=== PATIENT | male | born 2000 | race Caucasian/White ===

== ENCOUNTER 2021-08-01 09:54 | Observation (INO) ==
--- NOTE | 2021-08-01 11:15 | Emergency Department Note ---
History of Present Illness General Chief complaint: Arm Pain Stated complaint: ARM PAIN Time Seen by Provider: 08/01/21 10:58 Source: patient Mode of arrival: ambulatory Limitations: no limitations History of Present Illness Maximum Pain Intensity: 8 This patient is a 20-year-old male who presents to the emergency department for evaluation of right arm pain/swelling. Patient states that he cut his elbow a few days ago. He states that he fell and hit the elbow again last night. He woke up this morning and states that the arm was very red and swollen. He states there was no swelling prior to this morning. He rates his discomfort an 8/10. He is able to move the elbow but states it is just very painful to do so. He has not noticed any fevers at home, but was told here that he has a temperature of 99 F. Home Medications Medication Instructions Recorded Confirmed Type No Known Home Medications 08/01/21 08/01/21 History Allergies Allergy/AdvReac Type Severity Reaction Status Date / Time No Known Allergies Allergy Unverified 08/01/21 18:33 Past Med/Surg History Medical History No significant past medical history Surgical History No significant past surgical history Social History Smoking Status: Unknown if ever smoked Second Hand Exposure: Yes; Do You Dip or Chew Tobacco: No; Tobacco Cessation Education Requested by Patient: No Hx Alcohol Use: Yes Alcohol type: beer Hx Substance Use: No Preferred Language: Luxembourger Communication Ability: Effective Animation Producer Required: No Beliefs That Will Affect Care: None Current Living Situation: Other Current Living Situation Comment: lives in house off campus Other Information That Helps Us Care for You: No Feels Safe at Home: Yes Safety Concerns: Feels Safe At This Time Assistive Devices: None Review of Systems A total of 10 systems reviewed and were otherwise negative Physical Exam Vital Signs Vital Signs - 24 hr 08/01/21 10:12 08/01/21 11:44 08/01/21 13:05 Temperature 37.7 C H 38.1 C H Temperature Source Oral Oral Pulse Rate 112 H Pulse Rate [Right Finger] 112 H 76 Pulse Rhythm [Right Finger] Regular Pulse Strength [Right Finger] Normal Respiratory Rate 20 16 20 Respiratory Effort / Characteristics Non-Labored Spontaneous Respiratory Depth Normal Respiratory Pattern Regular Blood Pressure 118/63 Blood Pressure [Left Arm] 125/72 125/72 Blood Pressure Mean 81 Blood Pressure Mean [Left Arm] 89 89 Blood Pressure Position [Left Arm] Sitting Pulse Oximetry 99 98 99 Oxygen Delivery Method Room Air Room Air Room Air Sepsis Recent Fever Within 48 Hours No Sepsis New/Unexplained Change in Mental Status N/A Sepsis Action Taken by Nursing No Action Required VITALS: Vitals are noted on the nurse's note and reviewed by myself. GENERAL: This is a 20-year-old male, in no acute distress, well-developed well- nourished. SKIN: There is a large area of erythema, warmth and induration to the right elbow. There is a scabbed puncture wound over the olecranon. There is some lymphangitic streaking in the medial arm. EYES: Pupils equal round and reactive to light and accommodation. MOUTH: Mucous membranes moist. NECK: Supple without nuchal rigidity. No lymphadenopathy. HEART: Regular rate and rhythm without murmurs gallops or rubs. LUNGS: Clear to auscultation bilaterally without wheezes, rales or rhonchi. MUSCULOSKELETAL: Erythema, warmth, induration and tenderness to a large area surrounding the right elbow. Decreased range of motion of the elbow. NEURO: Patient was alert and oriented to person place and time. Distal sen sation intact. Course Consultations Consultation #1: Dr. Beck - [facility] Hospitalist Consultation #2: Dr. Servin - Orthopedics Administered Medications Acetaminophen (Acetaminophen 325 Mg Tab) 650 mg PO Q4H PRN PRN Reason: pain/fever Stop: 08/31/21 14:37 Last Admin: 08/01/21 16:29 Dose: 650 mg Documented by: [id number] Sodium Chloride (Nss 1000ml) 1,000 mls @ 150 mls/hr IV .Q6H40M HANY Stop: 08/31/21 16:29 Last Admin: 08/01/21 19:00 Dose: 150 mls/hr Documented by: [id number] Infusion: 08/01/21 19:00 Dose: 150 mls/hr Documented by: [id number] Admin: 08/01/21 16:29 Dose: 150 mls/hr Documented by: [id number] Discontinued Medications Sodium Chloride (Nss 1000ml) 1,000 mls @ 999 mls/hr IV .Q1H1M ONE Stop: 08/01/21 12:19 Last Infusion: 08/01/21 14:33 Dose: 0 mls/hr Documented by: [id number] Admin: 08/01/21 12:41 Dose: 999 mls/hr Documented by: [id number] Ceftriaxone Sodium (Rocephin) 2,000 mg in 70 mls @ 140 mls/hr IV NOW STA Stop: 08/01/21 12:55 Last Infusion: 08/01/21 13:11 Dose: 0 mls/hr Documented by: [id number] Admin: 08/01/21 12:41 Dose: 140 mls/hr Documented by: [id number] Sodium Chloride (Nss 1000ml) 1,000 mls @ 999 mls/hr IV .Q1H1M ONE Stop: 08/01/21 14:20 Last Infusion: 08/01/21 13:48 Dose: 0 mls/hr Documented by: [id number] Admin: 08/01/21 13:29 Dose: 999 mls/hr Documented by: [id number] Sodium Chloride (Nss 1000ml) 500 mls @ 999 mls/hr IV .Q31M ONE Stop: 08/01/21 13:50 Last Infusion: 08/01/21 15:08 Dose: 0 mls/hr Documented by: [id number] Admin: 08/01/21 14:33 Dose: 999 mls/hr Documented by: [id number] Vancomycin HCl 1,500 mg/ (Sodium Chloride) 530 mls @ 200 mls/hr IV NOW ONE Stop: 08/01/21 16:53 Last Infusion: 08/01/21 18:19 Dose: 200 mls/hr Documented by: [id number] Admin: 08/01/21 15:14 Dose: 200 mls/hr Documented by: [id number] Ketorolac Tromethamine (Ketorolac Tromethamine 15 Mg/Ml Vial) 15 mg IV NOW STA Stop: 08/01/21 11:20 Last Admin: 08/01/21 12:41 Dose: 15 mg Documented by: [id number] Miscellaneous (Patient's Height And/Or Weight Needed) 1 ea N/A Q2H HANY Stop: 08/02/21 02:31 Last Admin: 08/01/21 16:30 Dose: 1 ea Documented by: [id number] Medical Decision Making Differential Diagnosis Differential diagnosis includes cellulitis, abscess, septic joint, sepsis, among others. Home Medications Current Medication List: was personally reviewed by me Laboratory Data Attestation: I reviewed the patient's lab results. Result diagrams: 08/01/21 11:57 08/01/21 11:57 Lab Results 08/01/21 08/01/21 08/01/21 Range/Units 11:57 11:57 12:30 WBC 17.61 H (4.8-10.8) K/uL RBC 4.56 L (4.7-6.1) M/uL Hgb 14.5 (14.0-18.0) g/dL Hct 41.3 L (42-52) % MCV 90.6 (80-100) fL MCH 31.8 (25-34) pg MCHC 35.1 (32-36) g/dL RDW Std Deviation 42.3 (36.4-46.3) fL RDW Coeff of Tani 12.8 (11.5-14.5) % Plt Count 299 (130-400) K/uL MPV 10.0 (7.4-10.4) fL Immature Gran % (Auto) 0.3 % Neut % (Auto) 84.1 % Lymph % (Auto) 9.5 % [place] % (Auto) 6.0 % Eos % (Auto) 0.0 % Baso % (Auto) 0.1 % Neut # (Auto) 14.80 H (1.4-6.5) K/uL Lymph # (Auto) 1.68 (1.2-3.4) K/uL [place] # (Auto) 1.06 H (0.11-0.59) K/uL Eos # (Auto) 0.00 (0-0.5) K/uL Baso # (Auto) 0.02 (0-0.2) K/uL Immature Gran # (Auto) 0.05 H (0.00-0.02) K/uL Sodium 136 (136-145) mmol/L Potassium 4.0 (3.5-5.1) mmol/L Chloride 100 (98-107) mmol/L Carbon Dioxide 26 (21-32) mmol/L Anion Gap 11.0 (3-11) BUN 10 (7-18) mg/dl Creatinine 1.29 (0.6-1.4) mg/dl Est Cr Clr Drug Dosing 88.4 ml/min Est GFR ( Amer) 91.9 ml/min Est GFR (Non-Af Amer) 79.3 ml/min BUN/Creatinine Ratio 7.6 L (10-20) Glucose 95 (70-99) mg/dl Lactate 2.9 H* (0.4-2.0) mmol/L Calcium 9.2 (8.5-10.1) mg/dl Total Bilirubin 1.0 (0.2-1) mg/dl AST 45 H (15-37) U/L ALT 32 (12-78) U/L Alkaline Phosphatase 101 (45-117) U/L Total Protein 7.8 (6.4-8.2) gm/dl Albumin 4.1 (3.4-5.0) gm/dl Globulin 3.7 (2.5-4.0) gm/dl Albumin/Globulin Ratio 1.1 (0.9-2) COVID-19 Eval Order SARS-CoV-2 (PCR) (Negative) 08/01/21 08/01/21 Range/Units 13:28 13:28 WBC (4.8-10.8) K/uL RBC (4.7-6.1) M/uL Hgb (14.0-18.0) g/dL Hct (42-52) % MCV (80-100) fL MCH (25-34) pg MCHC (32-36) g/dL RDW Std Deviation (36.4-46.3) fL RDW Coeff of Tani (11.5-14.5) % Plt Count (130-400) K/uL MPV (7.4-10.4) fL Immature Gran % (Auto) % Neut % (Auto) % Lymph % (Auto) % [place] % (Auto) % Eos % (Auto) % Baso % (Auto) % Neut # (Auto) (1.4-6.5) K/uL Lymph # (Auto) (1.2-3.4) K/uL [place] # (Auto) (0.11-0.59) K/uL Eos # (Auto) (0-0.5) K/uL Baso # (Auto) (0-0.2) K/uL Immature Gran # (Auto) (0.00-0.02) K/uL Sodium (136-145) mmol/L Potassium (3.5-5.1) mmol/L Chloride (98-107) mmol/L Carbon Dioxide (21-32) mmol/L Anion Gap (3-11) BUN (7-18) mg/dl Creatinine (0.6-1.4) mg/dl Est Cr Clr Drug Dosing ml/min Est GFR ( Amer) ml/min Est GFR (Non-Af Amer) ml/min BUN/Creatinine Ratio (10-20) Glucose (70-99) mg/dl Lactate (0.4-2.0) mmol/L Calcium (8.5-10.1) mg/dl Total Bilirubin (0.2-1) mg/dl AST (15-37) U/L ALT (12-78) U/L Alkaline Phosphatase (45-117) U/L Total Protein (6.4-8.2) gm/dl Albumin (3.4-5.0) gm/dl Globulin (2.5-4.0) gm/dl Albumin/Globulin Ratio (0.9-2) COVID-19 Eval Order Covid19 at [facility] SARS-CoV-2 (PCR) NEGATIVE (Negative) Imaging Data Attestation: I personally reviewed and interpreted this imaging study as follows: Radiologist's Impression: Elbow X-Ray 08/01/21 10:28 RIGHT ELBOW 3 VIEWS CLINICAL HISTORY: Fall with right elbow injury. FINDINGS: 3 views of the right elbow are obtained. No prior studies are available for comparison at the time of dictation. The skeletal structures are well mineralized. No fracture is seen. The joint spaces are preserved. There is no joint effusion. Dorsal soft tissue edema is seen involving the elbow and upper forearm. IMPRESSION: Soft tissue swelling with no fracture identified. Electronically signed by: Vincent Delaney M.D. 08/01/2021 11:56 AM MDM Narrative Continuous laboratory monitor: Order was placed for continuous laboratory monitor. Patient was placed on the laboratory monitor. Patient was noted to be in sinus tachycardia at an initial rate of 112 bpm. The patient is a 20-year-old male who presents today complaining of right elbow pain/swelling. Labs revealed a leukocytosis of 17,000, elevated lactate at 2.9. Patient was febrile and tachycardic on arrival. He did receive a fluid bolus to total 30 mL/kg. He was given Rocephin and Vancomycin. The overlying scab was unroofed and a small amount of purulent drainage expressed and cultured. I do expect patient will likely require further I&D/debridement by orthopedics, who was consulted and agreed to evaluate the patient. Case was discussed with the [facility] hospitalist, who agreed to evaluate the patient for further care. I did offer to speak with the patient's parents, and he declined. Impression & Plan Sepsis, Cellulitis of left forearm Discharge Plan Visit Data Chief Complaint: Arm Pain Stated Complaint: ARM PAIN ED Provider: Reinaldo Echeverria ED Midlevel Provider: Nika Quiles Discharge Problem: Sepsis, Cellulitis of left forearm Patient Disposition: Admitted As Inpatient Discharge Instructions Interventions: ED Discharge Assessment Last Done: 08/01/21 15:22 Discharge Problem: Sepsis Qualifiers: Sepsis type: sepsis due to unspecified organism Sepsis acute organ dysfunction status: without acute organ dysfunction Qualified Code(s): A41.9 - Sepsis, unspecified organism
[2021-08-01] MEDS ORDERED: KETOROLAC TROMETHAMINE 15 MG/ML VIAL IV STA (11:19)
[2021-08-01] MEDS ORDERED: SODIUM CHLORIDE 0.9% 1000ML 1,000 ML IV ONE ×2 (11:19→13:20)
--- NOTE | 2021-08-01 11:58 | XRay Report ---
RIGHT ELBOW 3 VIEWS CLINICAL HISTORY: Fall with right elbow injury. FINDINGS: 3 views of the right elbow are obtained. No prior studies are available for comparison at t he time of dictation. The skeletal structures are well mineralized. No fracture is seen. The joint sp aces are preserved. There is no joint effusion. Dorsal soft tissue edema is seen involving the elbow and upper forearm. IMPRESSION: Soft tissue swelling with no fracture identified. Electronically signed by: Vincent Delaney M.D. 08/01/2021 11:56 AM
[2021-08-01 12:25] LABS: Hematocrit (blood only) 41.3 % (42-52); Hemoglobin 14.5 g/dL (14.0-18.0); Mean Corpuscular Hemoglobin 31.8 pg (25-34); Mean Corpuscular Hgb Conc 35.1 g/dL (32-36); Mean Corpuscular Volume 90.6 fL (80-100); Platelet Count 299 K/uL (130-400); RDW Coefficient of Variation 12.8 % (11.5-14.5); RDW Standard Deviation 42.3 fL (36.4-46.3); Red Blood Count 4.56 M/uL (4.7-6.1); White Blood Count 17.61 K/uL (4.8-10.8)
[2021-08-01] MEDS ORDERED: cefTRIAXone SODIUM 2,000 MG/70 ML BAG IV STA (12:26)
[2021-08-01 12:46] LABS: Albumin Level 4.1 gm/dl (3.4-5.0); BUN Creatinine Ratio 7.6 (10-20); Calcium 9.2 mg/dl (8.5-10.1); Creatinine Clr Calc Pharmacy 88.4 ml/min; Est GFR (African American) 91.9 ml/min; Est GFR (Non-African American) 79.3 ml/min
[2021-08-01 12:49] LABS: Albumin Globulin Ratio 1.1 (0.9-2); Globulin 3.7 gm/dl (2.5-4.0); Total Protein 7.8 gm/dl (6.4-8.2)
[2021-08-01 13:20] LABS: Basophils # (auto) 0.02 K/uL (0-0.2); Basophils % (auto) 0.1 %; Immature Granulocytes # (auto) 0.05 K/uL (0.00-0.02); Immature Granulocytes % (auto) 0.3 %; Lymphocytes # (auto) 1.68 K/uL (1.2-3.4); Lymphocytes % (auto) 9.5 %; Monocytes # (auto) 1.06 K/uL (0.11-0.59); Neutrophils % (auto) 84.1 %
[2021-08-01] MEDS ORDERED: SODIUM CHLORIDE 0.9% 1000ML 500 ML IV ONE (13:20)
--- NOTE | 2021-08-01 13:46 | History & Physical Report ---
Date of Service August 01, 2021 Assessment & Plan (1) Cellulitis: Plan: 20 o male with h/o of fall on concrete arrives to ER over 48 hours after fall. This lesion appears to have complicated and is now showing signs of cellulitis with purulent drainage. May need to be debrided. Due to concern for MRSA will place on vanco and will continue this medication for now. This was discussed with ER provider and this was added. Also obtained culture of purulent drainage (from 5ml of drainage). will consult ortho. Patient received ceftriaxone in the ER. obtained blood culture. Saw patient again at 1800, patient feels improved. He states he is less foggy, and has more energy. Inquires if he can be discharged, however, explained that patient is sick and needs to stay in the hospital. (2) Severe sepsis: Plan: lactic acidosis has improved. will continue vancomycin and monitor improvement. if no significant improvement, may consider acting anaerobic coverage. DVT: lovenox Full Code History of Present Illness Chief Complaint: Red right elbow. Primary Care Provider: NO PCP This a pleasant 20 yo male who came into the ER with Right elbow erythema, with pain that patient noticed when he awoke this monring. Patient reports he was his usual state of health this past Sunday when he fell and scraped his right elbow on the concrete floor. He noticed the cut was deep, but decided not to go to the ER. The area scabbed over on Sunday and Sunday he noticed he had localized dull pain. But patient did not recall any redness at that time.. He denied any subjective complaints of fever, chills, nausea, vomiting. Patient this morning noticed a signifcant amount of swelling and redness and moderate to severe pain on palpation. Erythema encompasses the right albow and goes up to the right forearm. Once patient came to the ER, he was found to be tachycardic, elevated WBC, and elevated Lactic acid. Patient was given fluids, and ceftriaxone and admission was called. During interview, patient's arm began to drain purulent yellow discharge. Allergies Allergy/AdvReac Type Severity Reaction Status Date / Time No Known Allergies Allergy Unverified 08/01/21 18:33 Home Medications Medication Instructions Recorded Confirmed Type No Known Home Medications 08/01/21 08/01/21 History Past Med/Surg History Medical History No significant past medical history Surgical History No significant past surgical history Social History Smoking Status: Unknown if ever smoked Second Hand Exposure: Yes; Do You Dip or Chew Tobacco: No; Tobacco Cessation Education Requested by Patient: No Hx Alcohol Use: Yes Alcohol type: beer Hx Substance Use: No Preferred Language: Ukrainian Communication Ability: Effective Retail Field Merchandiser Required: No Beliefs That Will Affect Care: None Current Living Situation: Other Current Living Situation Comment: lives in house off campus Other Information That Helps Us Care for You: No Feels Safe at Home: Yes Safety Concerns: Feels Safe At This Time Assistive Devices: None Review of Systems Constitutional: + fever and + chills; no sweats, no body aches and no fatigue Eyes: no diplopia and no decreased night vision Ear, Nose, Mouth, Throat: no ear trauma and no hyperacusis Respiratory: no cough and no change in sputum Cardiovascular: no chest pain and no chest pain with activity Gastrointestinal: no bloating and no nausea Genitourinary: no dysuria or no urinary frequency Musculoskeletal: no back pain and no radicular pain Integumentary: + erythema Neurologic: + falls (mechanical fall) Psychiatric: no hopelessness Endocrine: no polydipsia Hematologic / Lymphatic: no coagulopathy Allergy / Immunological: no GI upset with certain foods and no lip swelling Physical Exam Constitutional: WD/WN, vitals as above Eyes: PERRL, conjunctivae normal, anicteric sclerae ENMT: external ear and nose normal, oropharynx normal Neck: trachea midline, no thyromegaly Respiratory: normal respiratory effort, lungs clear to auscultation Cardiovascular: RRR, no murmur, no edema Gastrointestinal (Abdomen): normal bowel sounds, soft, nontender, no hepatosplenomegaly Skin: erythema: large clearly demarcated area around right elbow. purulent drainage of right elbow, small irregular scab. normal range of motion Psychiatric: A+Ox3, euthymic affect Lymphatic: no cervical or axillary lymphadenopathy Results & Data Results & Data ([facility]) Vital Signs (Past 12 Hours) Vital Signs Temp Pulse Pulse Resp BP BP Pulse Ox 08/01/21 13:05 76 20 125/72 99 08/01/21 11:44 38.1 C H 112 H 16 125/72 98 08/01/21 10:12 37.7 C H 112 H 20 118/63 99 PG Care Time/CCT Total # of Minutes Spent Total Time Spent with Patient: Total time spent is greater than 50% in coordination of care (as documented) at patient's floor/unit and/or counseling patient: Coding Level of Care Code 85089 Initial Inpt Care Lvl 3 Diagnoses Cellulitis L03.90 Severe sepsis A41.9; R65.20 Time Spent (min) 60
[2021-08-01] MEDS ORDERED: VANCOMYCIN CONSULT ACTIVE PRN (14:15)
[2021-08-01] MEDS ORDERED: VANCOMYCIN HCL 1,500 MG in SODIUM CHLORIDE 0.9% 500 ML IV ONE (14:15)
[2021-08-01] MEDS: ACETAMINOPHEN 325 MG TAB PO PRN (16:29)
[2021-08-01] MEDS: SODIUM CHLORIDE 0.9% 1000ML 1,000 ML IV SCH ×2 (16:29→19:00)
[2021-08-01] MEDS ORDERED: PATIENT'S HEIGHT AND/OR WEIGHT NEEDED SCH (16:30)
[2021-08-01] MEDS ORDERED: PATIENT'S ALLERGY INFO NEEDS ENTERED SCH (18:30)
--- NOTE | 2021-08-01 19:49 | Pharmacy Report ---
Pharmacy Vanc AUC Short Note - Date of Service August 01, 2021 - Assessment & Plan Assessment 20 year old M receiving vancomycin for treatment of SSTI. Pertinent microbiologic data includes: N/A. Day # 1 of antimicrobial therapy. Plan Vancomycin * AUC/YOLA is the preferred PK/PD target for vancomycin * AUC guided dosing is effective and associated with decreased risk of nephrotoxicity compared to traditional trough targets * vancomycin 1 gm IV q12 is predicted to achieve target AUC/YOLA of 400-600 mg/L.hr and may be associated with a 11 % risk of nephrotoxicity * Trough ordered for: 08/03/21 prior to 0400 dose Pharmacy will continue to follow and will adjust dose/frequency as necessary. Thank you.
[2021-08-02] MEDS: SODIUM CHLORIDE 0.9% 1000ML 1,000 ML IV SCH ×3 (01:02→18:16)
[2021-08-02] MEDS ORDERED: VANCOMYCIN HCL 1,000 MG in SODIUM CHLORIDE 0.9% 250 ML IV SCH ×2 (04:00→12:00)
[2021-08-02] MEDS: ACETAMINOPHEN 325 MG TAB PO PRN ×3 (04:43→23:40)
[2021-08-02 06:12] LABS: Basophils # (auto) 0.02 K/uL (0-0.2); Basophils % (auto) 0.1 %; Eosinophils # (auto) 0.01 K/uL (0-0.5); Eosinophils % (auto) 0.1 %; Hematocrit (blood only) 38.5 % (42-52); Hemoglobin 13.7 g/dL (14.0-18.0); Immature Granulocytes # (auto) 0.03 K/uL (0.00-0.02); Immature Granulocytes % (auto) 0.2 %; Lymphocytes # (auto) 1.13 K/uL (1.2-3.4); Lymphocytes % (auto) 6.7 %; Mean Corpuscular Hemoglobin 31.9 pg (25-34); Mean Corpuscular Hgb Conc 35.6 g/dL (32-36); Mean Corpuscular Volume 89.5 fL (80-100); Mean Platelet Volume 10.2 fL (7.4-10.4); Monocytes # (auto) 1.45 K/uL (0.11-0.59); Monocytes % (auto) 8.6 %; Neutrophils % (auto) 84.3 %; Platelet Count 232 K/uL (130-400); RDW Coefficient of Variation 12.6 % (11.5-14.5); RDW Standard Deviation 40.4 fL (36.4-46.3); White Blood Count 16.94 K/uL (4.8-10.8)
[2021-08-02 06:53] LABS: BUN Creatinine Ratio 7.2 (10-20); Calcium 8.2 mg/dl (8.5-10.1); Creatinine Clr Calc Pharmacy 100.9 ml/min; Est GFR (African American) 107.8 ml/min; Est GFR (Non-African American) 93.1 ml/min; Potassium 3.6 mmol/L (3.5-5.1)
--- NOTE | 2021-08-02 09:06 | Hospitalist Progress Note ---
Date of Service August 02, 2021 Assessment & Plan (1) Cellulitis of right forearm: Plan: Acute, severe (purulence plus SIRS), not at goal -wound culture positive for group a strep * d/c vancomycin * started IV Nafcillin 2000 mg q4 -blood culture negative at 24 hrs -ortho consulted: open debridement postponed to 08/03, advanced diet for dinner, NPO at midnight. * antibiotics management per ortho recs (2) Sepsis: Plan: Acute, not at goal -IV NS 150 mL/hr -likely due to cellulitis infection * see above (Cellulitis) Admission and Anticipated Discharge Date Admission Date: August 01, 2021 Supervising Physician Co-Signing Physician Notes I also saw the patient and confirmed andrade portions of the history and exam. 20-year-old male who was admitted through the emergency room yesterday with a septic olecranon bursitis, along with clinical findings of sepsis. Wound cultures growing group A strep; blood cultures are negative at this point. Orthopedics has seen and examined the patient and is potentially looking at a open irrigation debridement later today. Data White blood cell count is elevated at 16.94, down a little from 17.61 on admission. Platelets are normal at 232. Renal function preserved at 8, 1.13. Electrolytes are unremarkable except for sodium 135. Procalcitonin elevated at 1.51. An x-ray of the elbow showed no bony injury. Wound culture shows group A beta strep. Blood cultures show no growth at 24 hours. Assessment and Plan I agree with the impression and plan as noted in the resident documentation Infected olecranon bursitis, subsequent to fall with laceration Sepsis Based on culture results, can narrow antibiotics to nafcillin. Appreciate orthopedic consultation and recommendations. Subjective He reports cutting his right elbow on Sunday, then waking up on Sunday with fever and pain in the right arm with pus. He then came to the ED yesterday. ROS positive for chills, otherwise negative. Awake and curled up in bed upon entry. He reports feeling better than yesterday. He reports pain with movement. Otherwise, he denies any fevers, or chills overnight, SOB, abdominal pain, muscle stiffness, or dizziness. Review of Systems Review of Systems: All systems reviewed & are unremarkable except as noted in HPI & below Physical Exam Constitutional: well developed, comfortable and + diaphoretic (shirt soaked with sweat on exam, afebrile) Respiratory: normal respiratory effort, lungs clear to auscultation Cardiovascular: RRR, no murmur, no edema Musculoskeletal: Extremities: + limited ROM of upper extremity Right Skin: + skin tightening, + wound (linear, 1 cm wide; oozing pus) and + erythema (right forearm from mid arm to 2 inches proximal to wrist) Trauma: + laceration Results & Data Results & Data ([facility]) Vital Signs (Past 12 Hours) Vital Signs Temp Pulse Resp BP Pulse Ox 08/02/21 07:26 37 C 88 16 107/70 99 08/02/21 06:41 36.8 C 08/02/21 04:35 37.7 C H 08/01/21 23:13 37.9 C H 113 H 17 144/80 H 95 Resident Activity Tracking Resident Involvement: Resident Care Provided Care Provided: Adult Hospital Medicine (1) Sepsis Sepsis acute organ dysfunction status: without acute organ dysfunction Sepsis type: sepsis due to unspecified organism Qualified Code(s): A41.9 - Sepsis, unspecified organism
--- NOTE | 2021-08-02 10:12 | Orthopedic Consultation ---
Date of Consultation August 02, 2021 Assessment & Plan (1) Septic olecranon bursitis of right elbow: Patient states he has eaten breakfast this morning. Cultures done of the purulent fluid showing group A beta strep. He was given a dose of ceftriaxone in the emergency room and is currently on vancomycin. Patient is just shy of 24 hours on his admission time. He states that the pain is better however his erythema is about the same per the patient. There is a good chance he will r equire an open irrigation debridement of his olecranon bursa. I will make him n.p.o. at this time. I will discuss the case with Dr. Servin to discuss the possibility of open irrigation and debridement later today. Supervising Physician Co-Signing Physician Notes Patient seen and examined. Agree with ALISHA Osman's note as above. He has a very small approximately 3 mm wound on the posterior aspect of his right elbow. There is a small amount of purulent drainage from this area, consistent with a septic olecranon bursitis and decompressed abscess. He states that this happened after a fall and a scrape on his elbow, so there is the possibility of foreign bodies as a contributing factor. However, he very clearly has an extensive cellulitis down his forearm with significant diffuse swelling and erythema. I advised him that surgical debridement is recommended to address the abscess cavity and remaining purulent fluid collection within the olecranon bursa, but he will require further IV and likely later on oral antibiotics to treat and eradicate the cellulitis. He overall feels well, and is resting comfo rtably. He is currently eating dinner without any nausea or vomiting. He only complains of relatively mild pain in his elbow and forearm. He maintains good range of motion in the elbow with full extension and flexion with minimal discomfort. We will plan for likely irrigation and debridement surgery tomorrow. N.p.o. after midnight. Of note, he is already talking about leaving AMA in the very near future. History of Present Illness Reason for Consultation: Right septic olecranon bursitis Attending Physician: Aquilino Lugo, History of Present Illness Patient is a 20-year-old male who was admitted yesterday for septic olecranon bursitis. Patient states that he ended up falling and scraping his elbow off of the pavement on Sunday. The wound appeared to be a little deeper than just an abrasion. The patient treated on his own. As time progressed he began noticing increased redness around the elbow with increased pain. This began to worsen by Sunday and he decided to come into the emergency room to be seen. Patient states he was having some chills but denied nausea or vomiting. On his admission, he was febrile and having some chills. He was tachycardic. White count was increased as was his lactic acid. Blood cultures were drawn. At one point during their exam, he began having purulent drainage start from the small wound on his right elbow. This was cultured. He was noted to have erythema traveling down the forearm and was felt he needed to be admitted for IV antibiotics. We have been asked to see him for his right elbow. Currently he is sleeping upon entering the room but is easily awoken. No complaints this morning. Pain is about the same. He also states that the erythema is about the same. Denies chills at this time. No new complaints. Allergies Allergy/AdvReac Type Severity Reaction Status Date / Time No Known Allergies Allergy Unverified 08/01/21 18:33 Home Medications Medication Instructions Recorded Confirmed Type No Known Home Medications 08/01/21 08/01/21 History Patient History Medical History No significant past medical history Surgical History No significant past surgical history Social History Smoking Status: Unknown if ever smoked Second Hand Exposure: Yes; Do You Dip or Chew Tobacco: No; Tobacco Cessation Education Requested by Patient: No Hx Alcohol Use: Yes Alcohol type: beer Hx Substance Use: No Preferred Language: Central [place] Communication Ability: Effective 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 He has a small 4 x 4 dressing over the elbow that has yellow drainage on it. His forearm and elbow area has a line that was drawn around the original erythema upon entering the emergency room. The erythema has increased past the line on his forearm down to just proximal to the wrist. He states that this has not worsened. He does have some swelling of the forearm at this time and is tender on palpation. Upon removing the bandage from his elbow, he has a small open wound right at the elbow that is draining aspen yellow pus. There is no odor. I am able to express a little bit of the fluid during the exam. He is able to almost fully extend his elbow with some difficulty. He is able to take his elbow into flexion fairly well at this time. He does have some discomfort during flexion and extension. The area around the wound is boggy on palpation. He has good right wrist range of motion without pain. He has good range of motion of his hand and fingers. Radial pulses strong. Cap refills less than 2 seconds. He has good sensation in all of his fingers. He denies any pain above the elbow to the shoulder. Denies any axillary pain. Results & Data ([facility]) Vital Signs (Past 12 Hours) Vital Signs Temp Pulse Resp BP Pulse Ox 08/02/21 07:26 37 C 88 16 107/70 99 08/02/21 06:41 36.8 C 08/02/21 04:35 37.7 C H 08/01/21 23:13 37.9 C H 113 H 17 144/80 H 95 Laboratory Results Name: BAIRON PRIETO Acct: [id number] Status: ADM IN : 2000 [facility] [place] Date: 08/01/21 Age: 20 Sex: M Dis Date: Loc: Medical/Surgical/Ortho 3 [facility] Rm/Bed: E306-1 Spec: [id number] Collected: 08/01/21 Received: 08/01/21-[address]: Nika Quiles PAYeni Source: Elbow,Right OV Order: Ordered: Surf Wnd Cul/Sm Procedure Result Verified Site Gram Stain Final 08/01/21 Gram Stain Result Few WBCs Seen Few Gram Positive Cocci Few Epithelial Cells Surface Wound Culture Preliminary 08/02/21 Organism 1 Group A Beta Strep Quantity Many Sens No Sensitivities to Follow Diagnostic Findings Patient: BAIRON PRIETOAdmit Date: 08/01/21#: [id number]: Acct ID:[id number]: Date: 2000City Zip: Age: 20Location: EDS ex: MRoom/Bed:Att Phy:Diagnosis: ARM PAINPri Phy: PCP,NOService Date: 08/01/21Fa Phy:Interpreting Phy: Vincent Delaney MDAdmit Phy: Ordering Phy: Reinaldo Echeverria MD cc: ~ RIGHT ELBOW 3 VIEWS CLINICAL HISTORY: Fall with right elbow injury. FINDINGS: 3 views of the right elbow are obtained. No prior studies are available for comparison at the time of dictation. The skeletal structures are well mineralized. No fracture is seen. The joint spaces are preserved. There is no joint effusion. Dorsal soft tissue edema is seen involving the elbow and upper forearm. IMPRESSION: Soft tissue swelling with no fracture identified.
[2021-08-02] MEDS ORDERED: DIPHTHERIA/TETANUS TOX ADSORBED ULTRAFINED 0.5 ML SYR/VIAL IM ONE (12:00)
[2021-08-02] MEDS: NAFCILLIN SODIUM 2,000 MG in DEXTROSE 5% 100 ML IV SCH ×2 (20:28→23:43)
[2021-08-03] MEDS: SODIUM CHLORIDE 0.9% 1000ML 1,000 ML IV SCH ×4 (00:26→17:51)
[2021-08-03] MEDS ORDERED: VANCOMYCIN TROUGH ONE (03:30)
[2021-08-03] MEDS: NAFCILLIN SODIUM 2,000 MG in DEXTROSE 5% 100 ML IV SCH ×6 (04:27→23:07)
[2021-08-03 06:39] LABS: Basophils # (auto) 0.02 K/uL (0-0.2); Basophils % (auto) 0.1 %; Eosinophils # (auto) 0.06 K/uL (0-0.5); Eosinophils % (auto) 0.4 %; Hematocrit (blood only) 40.6 % (42-52); Hemoglobin 13.8 g/dL (14.0-18.0); Immature Granulocytes # (auto) 0.04 K/uL (0.00-0.02); Immature Granulocytes % (auto) 0.2 %; Lymphocytes # (auto) 1.02 K/uL (1.2-3.4); Mean Corpuscular Hemoglobin 31.3 pg (25-34); Mean Corpuscular Volume 92.1 fL (80-100); Mean Platelet Volume 10.2 fL (7.4-10.4); Monocytes # (auto) 1.25 K/uL (0.11-0.59); Monocytes % (auto) 7.3 %; Neutrophils # (auto) 14.62 K/uL (1.4-6.5); Platelet Count 263 K/uL (130-400); RDW Coefficient of Variation 12.3 % (11.5-14.5); RDW Standard Deviation 41.9 fL (36.4-46.3); Red Blood Count 4.41 M/uL (4.7-6.1); White Blood Count 17.01 K/uL (4.8-10.8)
[2021-08-03 07:08] LABS: Creatinine Clr Calc Pharmacy 97.4 ml/min; Est GFR (African American) 103.4 ml/min; Est GFR (Non-African American) 89.2 ml/min
--- NOTE | 2021-08-03 08:37 | Hospitalist Progress Note ---
Date of Service August 03, 2021 Assessment & Plan (1) Sepsis: Plan: Ronan is a generally healthy 20M who was admitted 2 days ago for sepsis, and olecranon bursitis and cellulitis. He was de-escalated to IV nafcillin yesterday after wound culture showed group A strep. -Met SIRS criteria on admission (Temp >38C, Heart rate > 90, WBC > 12,000/mm3) -Lactate has decreased from 2.9 to 1.5 -s/p fluid resuscitation -Source: likely right olecranon cellulitis -WBC remains ~17; continue to trend -Wound culture positive for group A beta strep -Blood cultures negative at 24 hrs -patient to undergo open debridement today with Dr. Enriquez (ortho) -Criteria for discharge: afebrile for 24 hours without antipyretics, last fever was 08/03 0056 (2) Cellulitis of right forearm: Plan: -Acute, severe (purulence plus SIRS) -Wound culture positive for group A beta strep -Antibiotics were de-escalated from ceftriaxone to IV nafcillin 2000 mg q4; plan to transition to PO oxicillin upon discharge -Ortho planning to do open debridement with Dr. Enriquez today -Criteria for discharge: no further advancement of erythema DVT ppx: will begin Lovenox SQ post-op Diet: Resume regular diet after procedure Dispo: Med/Surg Code: Full Code Admission and Anticipated Discharge Date Admission Date: August 01, 2021 Supervising Physician Co-Signing Physician Notes I also saw the patient and confirmed andrade portions of the history and exam. Upon our exam he is sleeping in bed but awakens easily to her voice. He tells us that he generally feels well. He notes that the arm feels betterless pain and greater range of movement compared to yesterday. 139/79, 108, 20, 30 C, 100% on room air Alert and oriented. No acute distress appreciated. Heart regular rate and rhythm. No murmurs noted. Lungs clear with nonlabored respirations On the right arm, there seems to be some improvement in the erythema and swelling proximal to the elbow, but some spreading erythema and perhaps some increased swelling distal to the elbow. With palpation, there is less tenderness of the entire arm than the was compared to yesterday. Data Lipid cell count 17.01, hemoglobin 13.8, platelet count 263 Creatinine 1.17 CRP 31.8 Wound culture shows group A beta strep. Blood cultures show no growth at 48 hours. Assessment and Plan I agree with the impression and plan as noted in the medical student/resident documentation Infected olecranon bursitis, subsequent to fall with laceration Sepsis Clinically, a mixed picture. He reports less discomfort and increased range of motion, but upon exam, there is some extension of the erythema. WBCs are essentially unchanged; he continues to have fevers. Based on culture results, nafcillin should cover group A strep without difficulties. At this point, continue nafcillin; he is scheduled for the OR later today. Will reassess after OR in discussion with orthopedics with regards to antibiotics. Subjective He reports feeling better than yesterday. He reports mild tenderness and some spread of the erythema. He last had a fever of 38.2C at 0056 today. Otherwise, he denies SOB, abdominal pain, muscle stiffness, or dizziness. Open debridement is planned for today with Dr. Enriquez. Review of Systems Review of Systems: All systems reviewed & are unremarkable except as noted in HPI & below Physical Exam Constitutional: well developed and comfortable Eyes: + anicteric sclerae ENMT: external ear and nose normal, oropharynx normal Neck: normal visual inspection and trachea midline Respiratory: normal respiratory effort, lungs clear to auscultation Cardiovascular: Rate/Rhythm: regular rate and regular rhythm Musculoskeletal: Head/Neck/Chest: normocephalic and head atraumatic full ROM of right elbow with extension/flexion Skin: + skin tightening, + wound (right upper extremity; linear, 1 cm wide; oozing pus) and + erythema (right forearm from axilla to wrist) Trauma: + laceration Psychiatric: A+Ox3, euthymic affect Results & Data Results & Data ([facility]) Vital Signs (Past 12 Hours) Vital Signs Temp Pulse Pulse Resp BP Pulse Ox 08/03/21 07:26 37.5 C 95 H 16 122/78 97 08/03/21 04:26 37.2 C 08/03/21 00:56 38.2 C H 08/02/21 23:24 37.8 C H 102 H 18 122/76 96 Laboratory Results White blood cell count is elevated at 17.01, stable from 16.94 yesterday. Platelets are normal at 263. Renal function preserved with creatinine at 1.17. ESR is 48. CRP is 31.80. An x-ray of the elbow showed no bony injury. Wound culture shows group A beta strep. Blood cultures show no growth at 48 hours. (1) Sepsis Sepsis acute organ dysfunction status: without acute organ dysfunction Sepsis type: Streptococcus group A Qualified Code(s): A40.0 - Sepsis due to streptococcus, group A
--- NOTE | 2021-08-03 11:02 | Anesthesiology Consultation ---
Date of Service August 03, 2021 Assessment & Plan (1) Encounter for pre-operative examination: Chart Review Chart Review: Acceptable Risk for Surgery and Patient NOT seen in Pre Admission Testing Consults Requested none History Surgery Operation Date: 08/02/21 10:25 Proposed Procedures p Incision and Drainage Extremity - Carloz Enriquez MD Operation Date: 08/03/21 07:00 Proposed Procedures p Right Incision and Drainage Septic Olecranon Bursitis - Carloz Enriquez MD Height/Weight Height: 5 ft 8 in Weight: 80.9 kg Allergies Allergy/AdvReac Type Severity Reaction Status Date / Time No Known Allergies Allergy Unverified 08/01/21 18:33 Medications Home Medications Medication Instructions Recorded Confirmed Last Taken No Known Home Medications 08/01/21 08/01/21 Unknown Active Medications Generic Name Dose Route Start Last Admin Trade Name Freq PRN Reason Stop Dose Admin Acetaminophen 650 mg 08/01/21 14:38 08/02/21 23:40 Acetaminophen 325 Mg Tab PO 08/31/21 14:37 650 mg Q4H PRN Administration pain/fever Sodium Chloride 1,000 mls @ 150 mls/hr 08/01/21 16:30 08/03/21 07:46 Nss 1000ml IV 08/31/21 16:29 150 mls/hr .Q6H40M HANY Administration Nafcillin Sodium 2,000 mg/ 108 mls @ 100 mls/hr 08/02/21 20:00 08/03/21 08:51 Dextrose IV 08/08/21 19:59 Infused Q4H HANY Infusion Protocol NPO Date Last Intake of Fluids: 08/02/21 Time Last Intake of Fluids: 23:59 Date Last Intake of Solids: 08/02/21 Time Last Intake of Solids: 23:59 Past Medical History Medical History No significant past medical history Past Surgical History Surgical History No significant past surgical history Social History Smoking Status: Unknown if ever smoked Do You Dip or Chew Tobacco: No Hx Alcohol Use: Yes Alcohol type: beer alcohol intake frequency: other Alcohol Intake Frequency Comment: 7-8 beers a week Hx Substance Use: No Physical Exam Vital Signs Last Vital Signs Temp 37.5 C 08/03/21 07:26 Pulse 95 H 08/03/21 07:26 Resp 16 08/03/21 07:26 BP 122/78 08/03/21 07:26 Pulse Ox 97 08/03/21 07:26 Testing Laboratory Results 08/03/21 05:50 08/03/21 05:50 08/01/21 12:04 Aerobic Blood Culture - Preliminary Blood No growth in Aerobic bottle after 24 hours. Anaerobic Blood Culture - Final 08/01/21 11:57 Aerobic Blood Culture - Preliminary Blood No growth in Aerobic bottle after 24 hours. Anaerobic Blood Culture - Preliminary No growth in Anaerobic bottle after 24 hours. 08/01/21 14:29 Gram Stain - Final Elbow,Right Wound Culture - Preliminary Group A Beta Strep
[2021-08-03] MEDS ORDERED: PROPOFOL IV EMULSION 10 MG/ML 20 ML VIAL IV ONE (14:45)
[2021-08-03] MEDS ORDERED: fentaNYL citrate 100 MCG/2 ML VIAL ONE (14:46)
[2021-08-03] MEDS ORDERED: MIDAZOLAM HCL 1 MG/ML 2ML VIAL ONE (14:46)
[2021-08-03] MEDS ORDERED: ONDANSETRON INJ 2 MG/ML 2 ML VIAL ONE (14:57)
--- NOTE | 2021-08-03 15:16 | History & Physical Bridge Note ---
Date of Service August 03, 2021 History & Physical Bridge Note I have examined the patient, reviewed the History & Physical and in the interval since the performance of the History & Physical I have noted the following changes of clinical significance: no changes noted
[2021-08-03] MEDS ORDERED: METOCLOPRAMIDE HCL INJ 5 MG/ML 2 ML VIAL ONE (15:36)
[2021-08-03] MEDS ORDERED: HYDROmorphone INJ 2 MG/ML SYR/VIAL ONE (15:39)
[2021-08-03] MEDS ORDERED: ceFAZolin 2000MG 2,000 MG/15 ML SYR IV ONE (16:06)
[2021-08-03] MEDS ORDERED: ATROPINE SULFATE 0.1 MG/ML 10ML SYR IV PRN (16:19)
[2021-08-03] MEDS ORDERED: ONDANSETRON INJ 2 MG/ML 2 ML VIAL IV PRN ×2 (16:19→17:39)
[2021-08-03] MEDS ORDERED: ePHEDrine sulfate 50 MG/ML AMP IV PRN (16:19)
[2021-08-03] MEDS ORDERED: PROMETHAZINE HCL 12.5 MG in SODIUM CHLORIDE 0.9% 50 ML IV PRN (16:19)
[2021-08-03] MEDS ORDERED: fentaNYL citrate 100 MCG/2 ML VIAL IV PRN (16:19)
[2021-08-03] MEDS ORDERED: HYDROmorphone INJ 1 MG/ML SYRINGE IV PRN (16:19)
--- NOTE | 2021-08-03 16:44 | Post Operative Brief Note ---
Immediate Post Op Note v1 Date of Surgery August 03, 2021 Pre & Post Diagnosis Operation Date: 08/02/21 10:25 <No data on this case meets the specified criteria> Operation Date: 08/03/21 07:00 Pre-Op Diagnosis: Arm cellulitis, septic olecranon bursitis, right elbow Post-Op Diagnosis: Arm cellulitis, septic olecranon bursitis, right elbow I identified the patient and participated in the time-out.: Yes Procedure Operation Date: 08/02/21 10:25 <No data on this case meets the specified criteria> Operation Date: 08/03/21 07:00 Actual Procedures p Right Incision and Drainage Septic Olecranon Bursitis(Right), irrigation debridement with olecranon bursectomy and packing with iodoform gauze- Carloz Enriquez MD Surgeon Carloz Enriquez MD Electrical Products Sales Engineer Eric BRITO Estimated Blood Loss 15 Findings Consistent with Post-Op Diagnosis Specimens Deep culture olecranon bursa Anesthesia Type General Complications none Disposition Disposition: Recovery Room Overlapping Procedure I was immediately available: during the entire case.
--- NOTE | 2021-08-03 17:14 | Anesthesiology Progress Note ---
Date of Service August 03, 2021 Anesthesia Post Procedure Vital Signs Vital Signs: Temp Pulse Pulse Pulse Resp BP Pulse Ox 08/03/21 17:10 83 12 118/75 99 08/03/21 17:00 37.4 C 86 15 120/71 99 08/03/21 16:50 86 12 110/71 100 08/03/21 16:40 86 17 102/70 100 08/03/21 16:32 37.1 C 82 108 H 14 89/54 L 100 08/03/21 14:46 38 C H 108 H 20 139/79 100 08/03/21 07:26 37.5 C 95 H 16 122/78 97 08/03/21 04:26 37.2 C 08/03/21 00:56 38.2 C H 08/02/21 23:24 37.8 C H 102 H 18 122/76 96 08/02/21 18:17 37.2 C Pain Intensity Right Elbow: Pain Intensity: 5 Transfer of Care Handoff Completed per policy Notes Mental Status: alert / awake / arousable and participated in evaluation Patient Amnestic to Procedure: Yes Nausea / Vomiting: adequately controlled Pain: adequately controlled Airway Patency, RR, SpO2: stable & adequate BP & HR: stable & adequate Hydration State: stable & adequate Anesthetic Complications: no major complications apparent and Pt Satisfied with anesthetic care
[2021-08-03] MEDS ORDERED: MAGNESIUM HYDROXIDE SUSP 30 ML UDC PO PRN (17:39)
[2021-08-03] MEDS ORDERED: HYDROCODONE/ACETAMOPHEN 5/325MG TAB PO PRN (17:39)
[2021-08-03] MEDS ORDERED: bisacodyL 10 MG SUPP PR PRN (17:39)
[2021-08-03] MEDS ORDERED: NALOXONE HCL 0.4 MG/1 ML VIAL/CARP IV PRN (17:39)
[2021-08-03] MEDS: ENOXAPARIN INJ 40 MG/0.4 ML SYR SQ SCH (18:29)
--- NOTE | 2021-08-03 18:30 | Operative Report (OR) ---
INDICATIONS FOR PROCEDURE: A 20-year-old male who injured his right elbow, had a small wound over hi s olecranon bursa area. This went on to get infected and he had cellulitis spreading up and down his arm with a culture demonstrating Streptococcus infection. The patient was on IV antibiotics, but di d not respond to antibiotics with advancing erythema beyond the kenji of demarcation down to his wrist and up to his upper arm now, and his white count is still 17,000. PREOPERATIVE DIAGNOSIS: Right elbow septic olecranon bursitis with arm cellulitis. POSTOPERATIVE DIAGNOSIS: Right elbow septic olecranon bursitis with arm cellulitis. PROCEDURE: Right elbow incision and drainage, irrigation and debridement including skin, subcutaneou s tissues and olecranon bursectomy with iodoform gauze packing. SURGEON: Carloz Enriquez MD. HAND II BLOCKER: Amador Salas PA-C. ANESTHESIA: General. ESTIMATED BLOOD LOSS: 15 mL. DRAINS: None. COMPLICATIONS: None. DESCRIPTION OF OPERATIVE PROCEDURE: The patient was taken to the operating room, anesthetized under general anesthetic. Pneumatic tourniquet was placed on his right upper arm and he was placed supine on the operating table. We used the right arm board. Right upper extremity was prepped and draped w ith Betadine scrub and paint. No Esmarch was used due to the infection. The arm was elevated and th e pneumatic tourniquet was raised to 250 mmHg. A posterior incision was made across his olecranon bursa. There was a wound, which was draining some pus, which was about 4 x 3 mm. This extended into the olecranon bursa. Around the area of the woun d, I did debride the skin edges to remove the damaged tissue including skin and subcutaneous tissues to remove the entire preexisting wound skin edges. The incision itself was about 5 cm. The olecrano n bursa deep culture was obtained. The bursa was clearly infected with a chronically inflamed bursal tissue with infection extending down to the fascia over the triceps, but no bone infection, no expos ed periosteum. The wound was copiously irrigated with antibiotic pulsatile saline solution with Ancef in the solutio n. I initially used 3 liters. I then did an olecranon bursectomy, removing all of the chronically i nflamed bursa tissue. Then, further irrigation performed with 3 more liters of saline solution with pulsatile lavage with Ancef. Then, the wound was packed with 1/4-inch iodoform gauze and then the wo und was closed with interrupted 3-0 nylon vertical mattress sutures, leaving about a centimeter of th e wound open distally with packing protruding from the opening to allow drainage. Xeroform, sterile dressings with sterile gauze and ABDs and sterile Webril was applied. The tourniquet was let down. The patient had normal return of circulation to the extremity and the patient tolerated the procedure well without complication at this time. Amador Salas PA-C was my licensed physical therapist assistant. He assisted in arm positioning, soft tissue retraction, dressing the wound and postoperative care. Job ID: [id number]
[2021-08-03] MEDS: DOCUSATE SODIUM 100 MG CAP PO SCH (19:55)
[2021-08-03] MEDS ORDERED: SENNA 8.6 MG TAB PO SCH (21:00)
[2021-08-04] MEDS: ACETAMINOPHEN 325 MG TAB PO PRN (02:18)
[2021-08-04] MEDS: SODIUM CHLORIDE 0.9% 1000ML 1,000 ML IV SCH (03:19)
[2021-08-04] MEDS: NAFCILLIN SODIUM 2,000 MG in DEXTROSE 5% 100 ML IV SCH ×3 (04:20→11:45)
[2021-08-04 06:12] LABS: Hemoglobin 13.1 g/dL (14.0-18.0); Mean Corpuscular Hemoglobin 31.3 pg (25-34); Mean Corpuscular Hgb Conc 34.5 g/dL (32-36); Mean Corpuscular Volume 90.7 fL (80-100); Mean Platelet Volume 9.8 fL (7.4-10.4); Platelet Count 273 K/uL (130-400); RDW Coefficient of Variation 12.6 % (11.5-14.5); RDW Standard Deviation 41.6 fL (36.4-46.3); Red Blood Count 4.19 M/uL (4.7-6.1); White Blood Count 12.23 K/uL (4.8-10.8)
[2021-08-04 06:40] LABS: BUN Creatinine Ratio 4.7 (10-20); Calcium 8.3 mg/dl (8.5-10.1); Creatinine Clr Calc Pharmacy 98.3 ml/min; Est GFR (African American) 104.5 ml/min; Est GFR (Non-African American) 90.2 ml/min; Potassium 3.2 mmol/L (3.5-5.1)
[2021-08-04] MEDS ORDERED: POTASSIUM CHLORIDE CRTAB 20 MEQ TABCR PO STA (06:44)
[2021-08-04] MEDS: DOCUSATE SODIUM 100 MG CAP PO SCH (08:09)
[2021-08-04] MEDS: ENOXAPARIN INJ 40 MG/0.4 ML SYR SQ SCH (08:10)
[2021-08-04] MEDS ORDERED: MULTIVITAMIN TAB PO SCH (09:00)
--- NOTE | 2021-08-04 10:43 | Hospitalist Progress Note ---
Date of Service August 04, 2021 Assessment & Plan (1) Cellulitis of right forearm: Plan: Acute, improving, not at goal -I&D procedure yesterday w/o complications; deep wound culture showed gram- positive cocci * Continue IV Nafcillin 2000 mg q4 (consider switch to PO) * Tylenol 650 mg q4 PRN, [place] 5/325 q4 PRN for pain control (2) Sepsis: Plan: Acute, improving -d/c NSS drip -already on regular diet Admission and Anticipated Discharge Date Admission Date: August 01, 2021 Supervising Physician Co-Signing Physician Notes I also saw the patient with the resident physician and confirmed andrade portions of the history and exam. Please see the patient's discharge summary on the same date for my complete attestation. Kiran Ferraro is feeling much better this morning after his open debridement yesterday. "Best sleep I've had since being here." He is tolerating a regular diet and still ambulating on his own without difficulty. He wants to leave today and expressed a willingness to return for daily antibiotic IVs if necessary. Denies fever, pain, dizziness, or nausea/vomiting. Review of Systems Review of Systems: All systems reviewed & are unremarkable except as noted in HPI & below Physical Exam Constitutional: WD/WN, vitals as above Respiratory: normal respiratory effort, lungs clear to auscultation Cardiovascular: RRR, no murmur, no edema Musculoskeletal: Arm still bandaged from procedure. Results & Data Results & Data ([facility]) Vital Signs (Past 12 Hours) Vital Signs Temp Pulse Resp BP Pulse Ox 08/04/21 08:17 36.8 C 82 16 132/85 99 08/04/21 06:39 36.8 C 08/04/21 02:15 38 C H 90 20 112/72 95 Resident Activity Tracking Resident Involvement: Resident Care Provided Care Provided: Adult Hospital Medicine (1) Sepsis Sepsis acute organ dysfunction status: without acute organ dysfunction Sepsis type: Streptococcus group A Qualified Code(s): A40.0 - Sepsis due to streptococcus, group A
--- NOTE | 2021-08-04 15:01 | Orthopedic Progress Note ---
Date of Service August 04, 2021 Assessment & Plan (1) Septic olecranon bursitis of right elbow: Plan: Patient states he has eaten breakfast this morning. Cultures done of the purulent fluid showing group A beta strep. He was given a dose of ceftriaxone in the emergency room and is currently on vancomycin. Patient is just shy of 24 hours on his admission time. He states that the pain is better however his erythema is about the same per the patient. There is a good chance he will require an open irrigation debridement of his olecranon bursa. I will make him n.p.o. at this time. I will discuss the case with Dr. Servin to discuss the possibility of open irrigation and debridement later today. Admission and Anticipated Discharge Date Admission Date: August 01, 2021 Results & Data ([facility]) Vital Signs (Past 12 Hours) Vital Signs Temp Pulse Resp BP Pulse Ox 08/04/21 08:17 36.8 C 82 16 132/85 99 08/04/21 06:39 36.8 C
[2021-08-04] MEDS ORDERED: AMOXICILLIN/CLAVULANATE 875 MG TAB PO ONE (15:10)
--- NOTE | 2021-08-04 15:34 | Orthopedic Progress Note ---
Date of Service August 04, 2021 Assessment & Plan (1) Septic olecranon bursitis of right elbow: Plan: Postop day 1 status post I&D right septic olecranon bursitis. Group B beta Streptococcus on initial culture of drainage with gram-positive cocci noted on intraoperative culture. In our discussion together, I felt the patient should stay 1 more day so that we can get the remainder of the packing out tomorrow morning and then likely discharge him to home. Patient however was very adamant and stated that whether we gave him permission or if he was going to sign out AMA, that he was going to leave today. I discussed with him the possibilities of a worsening infection to the point of necrotizing fasciitis and or loss of limb if he left too soon. Patient understood but is still adamant and stated that he would sign out AMA if not approved to go. I discussed the case with Dr. Enriquez who did the surgery. Dr. Enriquez's recommendations were for the patient to stay another day to receive IV antibiotics and to have the remainder of the packing removed tomorrow morning. At that point time if he continued to improve the patient can be discharged to home. I discussed the case with Dr. Lugo. Discussed Dr. Enriquez's recommendations although knowing that the patient would likely sign out AMA. In the interim, I called the patient's mother and discussed the case with her. We had discussed that family medicine had talked about the possibility of going home today however they felt it was at the discretion of the surgeon. If all were in agreement then the patient will be discharged. However, orthopedics felt that he should stay at least into tomorrow morning so the wound can be reevaluated and then the possibility of discharge to home. The patient's mother had discussed with me that she knows her son's physical and mental states and that she was surprised that she got him to stay this long. She was hoping that we could discharge him home today and if he needed continued IV antibiotics that he could follow-up in the hospital [facility] for further treatment. I told her I would discuss this with the family medicine team as well as with Dr. Enriquez and formal plan. She stated if any of the plans were going to change, to let her know. However at this time as noted above, Dr. Enriquez was against him leaving today. Dr. Enriquez stated he would not release him today and that the patient can sign out AMA if he wants to. We then formed a plan with family medicine speaking to Dr. Lugo. This will be to send him home on Augmentin twice daily. [facility] to have a dressing change and the remainder of the packing removed. He will also have the option of following up with Dr. Lugo in his office for suture removal/wound check in 10 to 14 days versus having it done in the emergency room here at the hospital or at the [facility]. He has been instructed to return to the emergency room if his symptoms worsen. We also discussed that he should change his dressing daily and that once the wound is remaining dry that he can change it every other day until seen back in Dr. Lugo's office for suture removal. During this time the patient was repeatedly reminded of the consequences of a worsening Streptococcus infection including necrotizing fasciitis, loss of limb, septicemia, further infection of other joints and or organs. Dr. Lugo saw the patient shortly thereafter and the patient signed out AMA with the above noted plan. Admission and Anticipated Discharge Date Admission Date: August 01, 2021 Subjective Postop day 1 Patient sitting in his chair at the bedside. States he is feeling better today. Family medicine was in to see him early this morning and talked about possible discharge today. We discussed that it would depend on how well his infection was responding to the surgery and antibiotics. At that point time the patient states that he was planning to leave today whether with permission or out permission. I discussed with him that we usually like to see the wound and pull some of the iodoform packing but some of the packing may remain depending on how much is in there. Patient stated that he just did not want to stay here 1 more day and was planning to leave. Patient was very adamant about this. He had no new complaints. Physical Exam Physical Exam: Dressings removed. His proximal and distal erythema are resolving nicely. He continues to have some erythema and induration near the surgical wound and just distal towards the midportion of the forearm. Approximately 12 inches of iodoform packing was removed. He did not have any overt drainage during the removal of this packing but did have some slight serous drainage initially when pulling the packing out. Approximately 3 inches of packing was left outside of the wound to assist in further packing removal. The wound edges were well approximated with the nylon sutures. Patient had improving range of motion of his elbow and no discomfort with wrist range of motion. No discomfort in the upper extremity above the elbow. Wound was redressed with 4 x 4's, Adaptic, Kerlix wrap, Vasquez wrap. Neurovascular is intact. Results & Data ([facility]) Vital Signs (Past 12 Hours) Vital Signs Temp Pulse Resp BP Pulse Ox 08/04/21 08:17 36.8 C 82 16 132/85 99 08/04/21 06:39 36.8 C
--- NOTE | 2021-08-04 15:38 | Discharge Summary ---
Date of Service August 04, 2021 Admission HPI Per Admitting Provider This a pleasant 20 yo male who came into the ER with Right elbow erythema, with pain that patient noticed when he awoke this monring. Patient reports he was his usual state of health this past Sunday when he fell and scraped his right elbow on the concrete floor. He noticed the cut was deep, but decided not to go to the ER. The area scabbed over on Sunday and Sunday he noticed he had localized dull pain. But patient did not recall any redness at that time.. He denied any subjective complaints of fever, chills, nausea, vomiting. Patient this morning noticed a signifcant amount of swelling and redness and mod erate to severe pain on palpation. Erythema encompasses the right albow and goes up to the right forearm. Once patient came to the ER, he was found to be tachycardic, elevated WBC, and elevated Lactic acid. Patient was given fluids, and ceftriaxone and admission was called. During interview, patient's arm began to drain purulent yellow discharge. Admission Exam Per Admitting Provider Constitutional: WD/WN, vitals as above Eyes: PERRL, conjunctivae normal, anicteric sclerae ENMT: external ear and nose normal, oropharynx normal Neck: trachea midline, no thyromegaly Respiratory: normal respiratory effort, lungs clear to auscultation Cardiovascular: RRR, no murmur, no edema Gastrointestinal (Abdomen): normal bowel sounds, soft, nontender, no hepatosplenomegaly Skin: erythema: large clearly demarcated area around right elbow. purulent drainage of right elbow, small irregular scab. normal range of motion Psychiatric: A+Ox3, euthymic affect Lymphatic: no cervical or axillary lymphadenopathy Principal Diagnosis Septic olecranon bursitis of right arm Purulent forearm/arm cellulitis on the right Discharge Exam Constitutional WD/WN, vitals as above Respiratory normal respiratory effort, lungs clear to auscultation Cardiovascular RRR, no murmur, no edema Musculoskeletal Heavily bandaged right forearm and arm from open debridement; reduced erythema and swelling on the proximal and distal margins compared to yesterday. Unable to fully examine arm. Discharge Data Allergies Allergy/AdvReac Type Severity Reaction Status Date / Time No Known Allergies Allergy Unverified 08/01/21 18:33 Consultations 08/01/21 13:46 ED Decision to Admit Stat 08/01/21 16:21 Consult Orthopedic Surgery Routine Procedures Performed Operation Date: 08/02/21 10:25 <No data on this case meets the specified criteria> Operation Date: 08/03/21 07:00 Actual Procedures p Right Incision and Drainage Septic Olecranon Bursitis(Right) - Carloz Enriquez MD Hospital Course (1) Cellulitis of right forearm: Ronan Martin is a 20 year-old male who was in his usual state of health until he presented to the ED 08/01 in the morning with new onset of a swollen, red right elbow. He tripped on concrete the Sunday prior and got a cut on his elbow associated with localized dull ache. He had a second fall outdoors on Sunday before presenting to the ED. He awoke on Tuesday 07/31 with new onset 8/10 right elbow pain, swelling, redness, and fever, and limited range of motion due to pain. At the ED he was febrile to 38.1C, HR of 112, RR of 20, BP of 118/63, elevated lactic acid of 2.9, elevated WBC of 17.61, and cellulitis of his elbow. For cellulitis, he was started on ceftriaxone, but was escalated to vancomycin for empiric MRSA coverage, and given acetaminophen 650 mg q4h PRN for his fever. Wound culture returned positive for Group A Strep. Blood cultures were negative 48 hours later. He was switched to IV Nafcillin 2000 mg q4 for the rest of his course. Orthopedic surgery were consulted and they opted for an open incision and debridement, which was done on 08/03. Deep wound culture returned positive for gram positive cocci. He was continued on Nafcillin as it provided adequate coverage. He became insistent on leaving POD 1 without completing IV antibiotics course and with his arm still filled with packing. Both the consulting PA and attending hospitalist explained the risks of leaving early, specifically the risk of losing some or all of his arm to necrosis and/or . He insisted on leaving AMA anyway so, after conferring with the orthopedic surgery team, he was converted to PO Augmentin 875 bid for a 2 week course sent to his pharmacy. He received a one-time Augmentin dose before leaving today. He is scheduled to have his wound tape removed and redressed at an MTU tomorrow at 2 PM. He received a script for and directions to the appointment. (2) Septic olecranon bursitis of right elbow: Total Time Total Time Spent Total Time Spent (In Minutes): 50 minutes spent see the patient, coordinating care with consultants and the MTU, and documentation Total Time Includes: Examination of the Patient and Communication With Other Providers Discharge Plan Discharge Items Patient Disposition: Against Medical Advice Reason For Visit: CELLULITIS/SEPSIS Activity: Per Instructions section Non-emergency contact: Specialist Follow-up/Referrals: PCP,LINDA [Primary Care Provider] - Pending Studies at Discharge: No Stand-Alone Forms: [facility] [place], Smoking Cessation Medications and DC Order Prescriptions: New amoxicillin-pot clavulanate [Augmentin] 875-125 mg tablet 1 tab PO BID 14 Days Qty: 28 RF: 0 Discharge Orders: Left Against Medical Advice (Routine); Ordered 08/04/21 Ordered By: Edwige Person Admission Data Admit Date/Time: 08/01/21 14:37 Attending Provider: Aquilino Lugo Admit Provider: Elijah Desai Primary Care Provider: PCPLINDA Other Providers: Elijah Desai ; Sami Servin Other Interventions: Discharge Summary Assessment (RN) Last Done: 08/04/21 15:45 Supervising Physician Co-Signing Physician Notes I also saw the patient and confirmed andrade portions of the history and physical examination. I also had extensive conversations with orthopedics. Upon examination this morning, the patient states that his arm continues to feel better. He describes less swelling and increased movement. He states that he overall feels well; no myalgias, chills, dyspnea, nor fatigue. Exam 132/85, 93, 16, 36.8, 99% on room air Upon our exam, the arm is wrapped in bandage. A complete exam as described in the orthopedics note. There is continued erythe ma and induration of the surgical wound. There is no overt drainage with removal of part of his packing, although there was some slight serous drainage described. Data White blood cell count is improved at 12.23. Hemoglobin 13.1, platelet count 273 Sodium 140, potassium 3.2, chloride 109, BUN 5, creatinine 1.16 Pro calcitonin done today was 0.54, down from 1.51 48 hours previous As noted previous, wound culture from day of admission shows group A beta strep. The intraoperative deep culture obtained yesterday shows no growth to date. Assessment and Plan Septic olecranon bursitis, right elbow Some improvement but the recommendation from [facility] was continued hospitalization and reexamination tomorrow. The plan would be to remove the remainder of the packing; he still has some erythema and induration and we would like to see this further resolved before discharge. The patient was adamant on discharge today. Orthopedics was able to speak to the patient's family (mother) the request of the patient (the patient provided the mother's phone number so that we would call and update her). Our recommendations were e xpressed to her. I spoke with the patient as well explaining that leaving the hospital prior to discharge could potentially increase his risk of progression of infection, spread to other joints/organs, bacteremia, loss of limb function or loss of the limb itself, and systemic infection. He expressed understanding of these risk but indicated that he "cannot stay in this place any longer." An alternative, but not recommended, suboptimal plan was devised. The patient has been scheduled in the MTU tomorrow for packing removal and dressing change. He was given a prescription for Augmentin 875 mg p.o. twice daily. This should will cover strep. Other alternatives that would be more narrow (cephalexin) would need to be dosed 4 times daily, and was thought the compliance with the better was something that was twice daily. He will need to have his sutures removed in 10 to 14 days. Options have this done could be at the emergency department, our office, or [facility]. I again discussed the signs and symptoms of worsening infection. I emphasized that he would need to return to the emergency department should he have worsening fever, increased erythema, increased pain at the right elbow, any pain of the elbow wrist or shoulder. The patient signed out of the hospital AGAINST MEDICAL ADVICE. Resident Activity Tracking Resident Involvement: Resident Care Provided Care Provided: Adult Hospital Medicine
== END 2021-08-04 15:46 | disposition left against medical advice (07) | DRG 854 ==
LOC: ED 09:54 → INTOOBSV 14:37 → 3E 14:37 → SUATTDRO 14:37 → 3E 15:22